=== PATIENT | female | born 1965 | race Caucasian/White ===

== ENCOUNTER 2016-11-07 22:04 | Emergency (ER) | payer BC ==
[2016-11-07 22:22] VITALS: BP 146/84
[2016-11-08] MEDS ORDERED: KETOROLAC TROMETHAMINE 30 MG/ML VIAL IM ONE (00:48)
[2016-11-08] MEDS ORDERED: oxyCODONE HCL/ACETAMINOPHEN 1 TAB TABLET PO ONE (00:48)
[2016-11-08] MEDS ORDERED: DIAZEPAM 5 MG TABLET PO ONE (00:48)
[2016-11-08] MEDS ORDERED: KETOROLAC TROMETHAMINE 30 MG/ML VIAL ONE (00:55)
[2016-11-08] MEDS ORDERED: DIAZEPAM 5 MG TABLET ONE (00:55)
[2016-11-08] MEDS ORDERED: oxyCODONE HCL/ACETAMINOPHEN 1 TAB TABLET ONE (00:55)
--- NOTE | 2016-11-08 01:15 | ERNOTE ---
Lower Extremity HPI - Narrative Date of Service: 11/08/16 - General Lower Extremities Pain: knee: right - Lock Knee with Pain Time Seen by Provider: 11/08/16 00:46 Source: patient Exam Limitations: no limitations - Immun/Allergies/Home Medications Immunizations: IMMUNIZATION HX Immunizations Up to Date Yes History of Influenza Vaccine Yes Hx Pneumococcal Vaccination No Allergies/Adverse Reactions: Allergies Allergy/AdvReac Type Severity Reaction Status Date / Time No Known Allergies Allergy Unverified 11/07/16 22:22 Home Medications: HOME MEDICATIONS buPROPion HCL [Wellbutrin] 150 mg PO DAILY 11/07/16 [Last Taken Unknown] oxyCODONE HCL/ACETAMINOPHEN [Percocet 5 MG/325 MG] 1 tab PO Q8H #20 tablet 11/08 [Last Taken Unknown] - History of Present Illness Narrative: Patient comes due to R knee pain after landing full weight on the area. Patient has Hx of locking her knee to to meniscal damage. Occurred: this afternoon Location of Incident: home Method of Injury: Reports: other - Landed on R knee Loss of Consciousness: Reports: no loss of consciousness Modifying Factors - (Improves): Reports: immobilization, other - Rest Modifying Factors - (Worsens): Reports: movement Associated Symptoms: Reports: unable to bear weight Other Injuries: Reports: none Subsequent Symptoms: Denies: sensory loss, numbness, motor loss, bowel/bladder problem Prior Treament: Denies: recently seen Review of Systems - Review of Systems Constitutional: Present: no symptoms reported EYE: Present: no symptoms reported ENT: Present: no symptoms reported Respiratory: Absent: shortness of breath, cough, wheezing Cardiology: Absent: chest pain, palpitations, syncope Gastrointestinal/Abdominal: Present: no symptoms reported Genitourinary: Present: no symptoms reported Musculoskeletal: Present: joint pain - R Knee Pain and Locked Neurological: Present: no symptoms reported Endocrine: Present: no symptoms reported Hematologic/Lymphatic: Present: no symptoms reported Psych: Present: no symptoms reported All Other Systems: All systems neg except as marked - Patient's Past Medical History Patient History - Medical: Osteoarthritis, Other Patient History - Cancer: No Hx of Cancer Patient History - Surgical Procedures: Hysterectomy, Other - Social History Living Situations: other Smoking Status: Current every day smoker Have you smoked in the past 12 months: Yes Alcohol Use: none Drug Use: none Physical Exam - Physical Exam General Appearance: Present: wd/wn, alert, no apparent distress Ears, Nose, Throat: Present: normal ENT inspection, hearing grossly normal, normal pharynx Neck: Present: normal inspection, nontender Respiratory: Present: no respiratory distress, normal breath sounds, no accessory muscle use, chest nontender, lungs clear Cardiovascular/Chest: Present: regular rate, rhythm, no murmur, normal peripheral pulses Peripheral Pulses: N=norm/S=strong/W=weak/B=bound/A=absent: Carotid (R): Normal , Carotid (L): Normal, Femoral (R): Normal, Femoral (L): Normal Gastrointestinal/Abdominal: Present: normal bowel sounds, nontender, nondistended, soft, no organomegaly Back Exam: Present: normal inspection, normal range of motion, no CVA tenderness , no vertebral tenderness Extremity Exam: Present: no edema, decreased range of motion - There is pain, decreased ROM, and no swelling on the R knee area. No open wounds and good pulse and sensation noticed Neurological Exam: Present: alert, oriented, normal mood/affect, no motor/ sensory deficits Skin Exam: Present: normal color, warm/dry Lymphatic Exam: Present: no adenopathy ED Progress - Date and Time Seen: Date and Time: 11/08/16 02:07 Patient was able to extend the knee and lock of broke with. Patient will follow up with Ortho or PCP. - Vital Signs Patient's Vital Signs:: I have reviewed the patient's vital signs. Vital Signs: Vital Signs 11/07/16 22:15 Temperature 36.6 C Pulse Rate 80 Respiratory 14 Rate Blood Pressure 146/84 O2 Sat by Pulse 96 Oximetry - X-Ray X-Ray #1 X-Ray: knee X-ray Comments: There is no Fx noticed on film - Progress/Reassessment Chief Complaint: Lower Extremity Pain/ Injury Progress:: Improved - Transfer of Care Expected Disposition: Discharge Departure Clinical Impression: Knee sprain Qualifiers: Encounter type: initial encounter Involved ligament of knee: unspecified collateral ligament Laterality: right Qualified Code(s): S83.401A - Sprain of unspecified collateral ligament of right knee, initial encounter - Departure Disposition: Home self-care Condition: Stable Instructions: Knee Pain, Meniscus Tear Referrals: Buddy Kirby MD [Staff Physician] - Prescriptions: oxyCODONE HCL/ACETAMINOPHEN [Percocet 5 MG/325 MG] 1 tab PO Q8H #20 tablet
== END 2016-11-08 02:24 | disposition home or self-care (01) ==
LOC: ER 22:04
DX: S83.401A Sprain of unspecified collateral ligament of right knee, initial encounter (principal); F17.210 Nicotine dependence, cigarettes, uncomplicated; X50.1XXA Overexertion from prolonged static or awkward postures, initial encounter; Y92.009 Unspecified place in unspecified non-institutional (private) residence as the place of occurrence of the external cause

== ENCOUNTER 2016-12-04 10:17 | Day surgery (SDC) | payer BC ==
[~2016-12-04 10:17] MED LIST: RINGERS SOLUTION,LACTATED 1,000 ML IV PRN
--- OUTSIDE RECORDS SUMMARY | 2016-12-04 10:21 | XMS REPORT | Continuity of Care Document ---
:1965 Author Organization [facility] [place] [address] Care Team Providers Name Role Phone Provider, None Per Patient Primary Care Provider Unavailable Source Comments This disclosure is being made pursuant to the [employer] program and maynot contain all information available regarding this patient.[facility] Active Allergies and Adverse Reactions Not on File Current Medications Be aware that medications may not be up to date as of this document. Alwaysverify current medications with the patient. Not on file Active Problems Not on file Immunizations Name Dates Previously Given Next Due Influenza, Inactivated, Quadrivalent, Intradermal 08/12/2016 Influenza, Inactivated, Trivalent, Intradermal 08/08/2015 Social History Tobacco Use Types Packs/Day Years Used Date Never Assessed Plan of Care Health Maintenance Due Date Last Done Comments Hepatitis C Screening 1981 Tetanus/Pertussis (1 - Tdap) 1982 Pap Smear 1984 Colonoscopy 2013 Mammogram 2013 Well Adult Visit 2013 Influenza Immunization (#1) 2016 08/12/2016, 08/08/2015 Results from Last 3 Months Not on file
--- OUTSIDE RECORDS SUMMARY | 2016-12-04 10:21 | XMS REPORT | Continuity of Care Document ---
:1965 Author Organization [facility] ([facility]) Address [address] [place] [address] Phone [phone] Care Team Providers Name Role Phone Provider, No-Primary Care Primary Care Provider Unavailable Source Comments This disclosure is being made pursuant to the Care Everywhere program, applicable federal and state laws, and may not contain all informaitonavailable regarding this patient.[facility] ([facility]) Active Allergies and Adverse Reactions No Active Allergies Current Medications Prescription Sig. Disp. Refills Start Date End Date Status MULTIVITAMINS take 1 Tab by mouth Active (MULTI-VITAMIN PO) daily. meTHIMAzole Take 0.5 Tabs by mouth 90 Tab 3 02/24/2010 Active (TAPAZOLE) 5 mg daily. 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 Immunizations Name Dates Previously Given Next Due Influenza, unspecified 08/06/2009,08/18/2007,08/18/2006 Pneumococcal, unspecified 10/18/2005 Social History Tobacco Use Types Packs/Day Years Used Date Never Assessed Last Filed Vital Signs Vital Sign Reading Time Taken Blood Pressure 135/79 02/24/2010 1:46 PM CDT Pulse 57 02/24/2010 1:46 PM CDT Temperature 36.7 C (98.1 F) 02/24/2010 1:46 PM CDT Respiratory Rate - - Height 1.725 m (5' 7.91") 02/24/2010 1:46 PM CDT Weight 96.9 kg (213 lb 10 oz) 02/24/2010 1:46 PM CDT Body Mass Index 32.56 02/24/2010 1:46 PM CDT Oxygen Saturation - - Plan of Care Health Maintenance Due Date Last Done Comments HCV Screening 1965 Hepatitis B Vaccine (1 of 3 - 1965 Primary Series) Tdap Vaccine 1974 MMR Vaccine 1981 Td Vaccine 1981 Cervical Cancer Screening 1993 Mammogram 2003 Colonoscopy 09/13/2013 Lipid Disorder Screening 08/26/2014 08/26/2009 Influenza Vaccine: Seasonal (#1) 05/18/2016 08/06/2009, 08/18/2007, 08/18/2006 Results from Last 3 Months Not on file
[2016-12-04] MEDS: RINGERS SOLUTION,LACTATED 1,000 ML IV ONE ×2 (10:53→12:29)
[2016-12-04] MEDS: RINGERS SOLUTION,LACTATED 700 ML IV ONE (11:40)
[2016-12-04] MEDS: ceFAZolin SODIUM 1 GM VIAL IV PRN (11:45)
[2016-12-04] MEDS: BUPIVACAINE HCL/EPINEPHRINE 10 ML VIAL IJ ONE (12:00)
[2016-12-04] MEDS: ROPIVACAINE HCL/PF 40 MG in NORMAL SALINE 16 ML IJ PRN (12:17)
[2016-12-04 13:48] VITALS: BP 91/59
--- NOTE | 2016-12-04 15:04 | OR ---
Operative Report - Dictated Report Narrative: Date: 12/04/2016 Physician: Buddy Kirby M.D. 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 Nogueira Is a 51 year-old female who has been followed in my clinic with complaints of knee pain consistent with suspected medial and lateral joint pathology. Physical exam and diagnostic imaging were consistent with these complaints and concern for a large bucket handle lateral meniscus tear and a small posterior medial meniscus pathology. Conservative measures have failed including, but not limited to, passage of time, activity modification, medications, and injections. The risks, benefits, and alternatives were discussed in clinic. The risks being , bleeding, infection, blood clots, nerve, tendon, ligament, blood vessel injury, persistent pain, arthrosis, need for additional procedures, and persistent symptoms. Consent was obtained in the clinic. Procedure: After marking the correct extremity in the preoperative holding area, a timeout was performed in the operating room. IV antibiotics consisting of Ancef were administered prior to the procedure. A well-padded tourniquet was applied to the operative upper thigh. The leg was prepped and draped in a standard sterile fashion. 0.5% Marcaine with epinephrine was infused into the projected portal sites as well as the intra-articular space. A jose incision was made for inferior lateral portal. A blunt trocar and cannula was introduced into the knee. The suprapatellar pouch revealed allergy. The medial patella facet showed grade 3 changes with loose chondral edges. The lateral patella facet showed the same pathology as the medial. The trochlea showed minimal degenerative change. The medial gutter revealed no pathology. The medial joint space was then entered utilizing a lateral post and valgus stress. A spinal needle was utilized for guidance into placement of an anterior medial portal. This was placed just superior to the medial meniscus ensuring that we could reach the posterior aspect of the medial joint space. A jose incision was made in the site, and the probe was introduced to the knee. The medial joint space was examined, and the medial femoral condyle showed grade 3 change with loose chondral edges. The medial tibial plateau showed grade 2 change. The medial meniscus had a radial tear at the root extending approximately 50% of the depth. The notch was then examined, and the ACL was noted to be intact. The PCL was noted to be intact. The lateral joint space was then examined using a varus force in the figure 4 position. Lateral femoral condyle showed no arthrosis. Lateral tibial plateau showed grade 2 changes. The lateral meniscus showed a large bucket handle flipped but reducible tear involving the posterior one half of the meniscus and the full depth of the meniscus. The lateral gutter showed pathology. Having identified the surgical pathology, a series of biters and je were utilized in order to debride the roots of the medial meniscus down to stable margin approximately 50% depth over less than 10 % of the circumference. The lateral meniscus was shortened and rounded and based on preoperative discussion this was excised rather than repaired. This involved again 50% of the circumference and 100% of the depth over this area. The anterior meniscus was otherwise stable and intact. The shaver was utilized on the medial femoral condyle and patella to debride the loose chondral edges to stable margins. Once it was felt that we adequately addressed the pathology , the knee was thoroughly irrigated. The fluid was evacuated ensuring that we have removed all meniscal, chondral, and any other loose bodies. A final evaluation of the joint showed no additional pathology. The fluid was then evacuated of the knee, and the trocar and camera were removed from the joint. The wounds were closed with interrupted nylon after placing 20 mL of 0.2% ropivacaine into the joint. Dressings consisting of Xeroform, 4 x 4, ABD, soft roll, and an Marlon were applied. All sponge, needle, blade, and instrument counts were correct prior to closing the wounds. The patient was awoken and transferred to the postanesthesia care unit in stable condition.
== END 2016-12-04 10:18 | disposition home or self-care (01) ==
LOC: AMB 10:17
PROVIDERS: ATTEND Orthopaedic Surgery
PROC: 0SBC4ZZ Excision of Right Knee Joint, Percutaneous Endoscopic Approach (ICD-10-PCS; 2016-12-04)
PROC: 0SBC4ZZ Excision of Right Knee Joint, Percutaneous Endoscopic Approach (ICD-10-PCS; principal; 2016-12-04 12:35)
DX: M23.251 Derangement of posterior horn of lateral meniscus due to old tear or injury, right knee (principal); M23.231 Derangement of other medial meniscus due to old tear or injury, right knee; M94.261 Chondromalacia, right knee; F17.210 Nicotine dependence, cigarettes, uncomplicated; Z68.31 Body mass index [BMI] 31.0-31.9, adult